=== PATIENT | male | born 1985 | race Caucasian/White ===

== ENCOUNTER 2024-01-01 14:23 | Emergency (ER) | payer MEDICAID ==
[~2024-01-01] VITALS: Ht 182.9 cm; Wt 81.6 kg
[2024-01-01 14:27] VITALS: O2SAT 100
[2024-01-01] MEDS ORDERED: FLUO15OI TP (15:20)
== END 2024-01-01 15:36 | disposition home or self-care (01) ==
LOC: ER 14:31
DX: L40.9 Psoriasis, unspecified (principal); Z79.899 Other long term (current) drug therapy
CPT/HCPCS: A4606; A4663